=== PATIENT | male | born 1935 | race Caucasian/White ===

== ENCOUNTER → 2016-06-11 | Outpatient (CLI) | payer MEDICARE, OTHER ==
[~2016-06-11] MED LIST: ASPI81CH43 GT; ATOR20TA OR; CAR3125T OR; CLOP75TA28 OR; INSLANTI SC; PIOG30TA7 OR
== END | disposition home or self-care (01) ==
LOC: XYW 08:59
PROVIDERS: ATTEND Internal Medicine Cardiovascular Disease
DX: I50.9 Heart failure, unspecified (principal); I07.1 Rheumatic tricuspid insufficiency; I34.0 Nonrheumatic mitral (valve) insufficiency
CPT/HCPCS: 93306

== ENCOUNTER → 2017-01-13 | Outpatient (CLI) | payer MEDICARE, OTHER | END | disposition home or self-care (01) | LOC: XYW 10:19 | PROVIDERS: ATTEND Internal Medicine Cardiovascular Disease | DX: I34.0 Nonrheumatic mitral (valve) insufficiency (principal); I25.5 Ischemic cardiomyopathy | CPT/HCPCS: 93306 ==

== ENCOUNTER → 2017-07-22 | Outpatient (CLI) | payer MEDICARE, OTHER ==
[~2017-07-22] MED LIST changes: -PIOG30TA7 OR; +PIOG30TA8 OR
== END | disposition home or self-care (01) ==
LOC: XYW 09:18
PROVIDERS: ATTEND Internal Medicine Cardiovascular Disease
DX: I50.9 Heart failure, unspecified (principal)
CPT/HCPCS: 93306

== ENCOUNTER → 2018-12-23 | Outpatient (CLI) | payer MEDICARE, OTHER ==
[~2018-12-23] VITALS: Ht 175.3 cm; Wt 67.1 kg
[~2018-12-23] MED LIST changes: +ADENOSINE 56 MG in GIVE UN-DILUTED 0 ML IV STA; +PIOG30TA20 OR; -PIOG30TA8 OR
== END | disposition home or self-care (01) ==
LOC: XY 08:40
PROVIDERS: ATTEND Internal Medicine
DX: R07.9 Chest pain, unspecified (principal); I10 Essential (primary) hypertension
CPT/HCPCS: 78452; 93017; A9500; J0153

== ENCOUNTER → 2019-04-26 | Outpatient (CLI) | payer MEDICARE, OTHER ==
[~2019-04-26] MED LIST changes: -ADENOSINE 56 MG in GIVE UN-DILUTED 0 ML IV STA
== END | disposition home or self-care (01) ==
LOC: XY 10:43
PROVIDERS: ATTEND Internal Medicine
DX: I65.23 Occlusion and stenosis of bilateral carotid arteries (principal); I65.21 Occlusion and stenosis of right carotid artery; I65.22 Occlusion and stenosis of left carotid artery; I11.0 Hypertensive heart disease with heart failure; I50.9 Heart failure, unspecified; E11.9 Type 2 diabetes mellitus without complications
CPT/HCPCS: 93886

== ENCOUNTER 2019-05-06 10:14 | Inpatient (IN) | payer MEDICARE, OTHER ==
[2019-05-04 11:21] LABS: Basophils # (auto) 0 10 ^3/uL (0-0.2); Basophils % (auto) 0.5 % (0.0-2.0); Eosinophils # (auto) 0.2 10 ^3/uL (0-0.8); Eosinophils % (auto) 3.6 % (0.0-7.0); Hemoglobin 11.5 g/dL (13.5-17.5); Lymphocytes # (auto) 0.7 10 ^3/uL (0.4-5.4); Lymphocytes % (auto) 14.8 % (10.0-50.0); Monocytes # (auto) 0.5 10 ^3/uL (0-1.3); Neutrophils # (auto) 3.4 10 ^3/uL (1.6-8.6); White Blood Cell 4.8 10^3/uL (4.4-10.8)
[2019-05-04 11:23] LABS: Hematocrit 33.2 % (41.0-53.0); Mean Corpuscular Hemoglobin 35.5 pg (28.0-32.0); Mean Corpuscular Hgb Conc. 34.6 g/dL (32.0-36.0); Mean Corpuscular Volume 102.6 fL (80.0-100.0); Monocytes % (auto) 10.7 % (0.0-12.0); Neutrophils % (auto) 70.4 % (37.0-80.0); Platelet Count (auto) 117 10^3/uL (140-450); Red Blood Cells 3.24 10^6/uL (4.5-5.90); Red Cell Distribution Width 13.9 % (11.8-14.3)
[2019-05-04 11:27] LABS: INR 1.15 (0.9-1.15); Partial Thromboplastin Time 27.8 sec (23.64-32.05)
[2019-05-04 11:39] LABS: Albumin 3.4 g/dL (3.4-5.0); Calcium 8.6 mg/dL (8.5-10.1)
[2019-05-04 11:42] LABS: BUN/Creatinine Ratio 27.2; Bilirubin, Total 0.7 mg/dL (0.2-1.0); Total Protein 7.4 g/dL (6.4-8.2)
[~2019-05-06] VITALS: Ht 175.3 cm; Wt 71.2 kg
[~2019-05-06 10:14] MED LIST changes: -ASPI81CH43 GT; -ATOR20TA OR; +ATOR20TA PO; -CAR3125T OR; +CARV6.2551 PO; -CLOP75TA28 OR; +CLOP75TA28 PO; +DAPA1TAB4 PO; +DIGO0.12 PO; +DOXA1TAB41 PO; +FURO40TA4 PO; -INSLANTI SC; +MULTTAB99 PO; -PIOG30TA20 OR; +SERT-274 PO; +TAMS0.4C36 PO
[2019-05-06] MEDS ORDERED: GLYCOPYRROLATE 0.2 MG/ML 1ML VIAL ONE (11:14)
[2019-05-06] MEDS ORDERED: ATROPINE SULF 1 MG/10ml SYR ONE (11:14)
[2019-05-06] MEDS ORDERED: ANGIOMAX 250 MG VIAL IV ONE (11:14)
[2019-05-06] MEDS ORDERED: LIDOCAINE 2%HCL (LOCAL ANESTH.) INJ 20ML MDV ONE (11:15)
[2019-05-06] MEDS ORDERED: SODIUM CHL 0.9% 50 ML ONE (11:15)
[2019-05-06] MEDS ORDERED: EPINEPHrine HCL 1 MG/10 ML SYRG ONE (11:15)
[2019-05-06] MEDS ORDERED: DOPamine 1600MCG/ML D5W 0 ML IV ONE (11:15)
[2019-05-06] MEDS ORDERED: DEXTROSE 50% SYRINGE 50 ML IV ONE (11:30)
[2019-05-06] MEDS ORDERED: PHENYLEPHRINE HCL 10 MG/ML VL ONE (11:57)
[2019-05-06] MEDS ORDERED: CLOPIDOGREL BISULFATE 75 MG TAB ONE (12:34)
[2019-05-06] MEDS ORDERED: HYDROcodone-ACET 5/325MG TAB PO PRN (13:00)
[2019-05-06] MEDS ORDERED: ONDANSETRON HCL 4 MG/2 ML VIAL IV PRN (13:00)
[2019-05-06] MEDS ORDERED: NITROGLYCERIN 0.4 MG SL TAB SL PRN (13:00)
[2019-05-06] MEDS ORDERED: DEXTROSE (50%) 50ML SYRG IV PRN (13:00)
[2019-05-06] MEDS ORDERED: MORPHINE SULF INJ 2 MG/ML SYRINGE 1ML IV PRN (13:00)
[2019-05-06] MEDS: InsuLIN REG 1unit/0.01ml Soln (100units/ml) SC SCH ×2 (16:00→20:00)
[2019-05-06 17:00] VITALS: BP 101/32
[2019-05-06] MEDS: ACCU-CHEK COMFORT CURVE STRIP VI SCH ×2 (17:47→20:00)
[2019-05-06] MEDS: FUROSEMIDE 40 MG TAB PO SCH (18:00)
[2019-05-06] MEDS ORDERED: TAMSULOSIN HYDROCHLORIDE 0.4 MG CAP PO SCH (18:00)
[2019-05-06] MEDS: ACETAMINOPHEN 500 MG TAB PO PRN (20:20)
[2019-05-06 22:00] VITALS: BP 117/51
[2019-05-06] MEDS ORDERED: SERTRALINE HCL 50 MG TAB PO SCH (22:00)
[2019-05-06] MEDS: CARVEDILOL 3.125 MG TAB PO SCH (22:00)
[2019-05-07] MEDS: ACCU-CHEK COMFORT CURVE STRIP VI SCH ×3 (00:45→08:21)
[2019-05-07] MEDS: InsuLIN REG 1unit/0.01ml Soln (100units/ml) SC SCH ×3 (04:00→08:00)
[2019-05-07 05:00] VITALS: BP 112/47
[2019-05-07] MEDS: FUROSEMIDE 40 MG TAB PO SCH (06:00)
[2019-05-07 06:13] LABS: BUN/Creatinine Ratio 31.8; Calcium 8.2 mg/dL (8.5-10.1)
[2019-05-07 06:27] LABS: Potassium 2.8 mmol/L (3.5-5.1)
[2019-05-07] MEDS: ACETAMINOPHEN 500 MG TAB PO PRN (08:21)
[2019-05-07 09:00] VITALS: BP 113/35
[2019-05-07 09:40] VITALS: BP 113/35
[2019-05-07] MEDS ORDERED: CLOPIDOGREL BISULFATE 75 MG TAB PO SCH (10:00)
[2019-05-07] MEDS ORDERED: DIGOXIN 0.125 MG TAB PO SCH (10:00)
[2019-05-07] MEDS ORDERED: ATORVASTATIN 20 MG TAB PO SCH ×2 (10:00→22:00)
[2019-05-07] MEDS ORDERED: DOXAZOSIN MESYL 2 MG TAB PO SCH (10:00)
[2019-05-07] MEDS ORDERED: ASPirin 81 mg TAB PO SCH (10:00)
[2019-05-07] MEDS ORDERED: MULTIPLE VITAMIN TAB PO SCH (10:00)
[2019-05-07] MEDS: CARVEDILOL 3.125 MG TAB PO SCH (10:00)
[2019-05-07] MEDS ORDERED: POTASSIUM CHL 20 Meq TABLET PO ONE (10:15)
== END 2019-05-07 13:25 | disposition home or self-care (01) | DRG 36 ==
LOC: CATH 10:14 → TELE-WESTW 10:15
PROVIDERS: ADMIT Internal Medicine; ATTEND Internal Medicine
PROC: 037K3DZ Dilation of Right Internal Carotid Artery with Intraluminal Device, Percutaneous Approach (ICD-10-PCS; principal; 2019-05-06)
PROC: B3151ZZ Fluoroscopy of Bilateral Common Carotid Arteries using Low Osmolar Contrast (ICD-10-PCS; 2019-05-06)
PROC: B3121ZZ Fluoroscopy of Left Subclavian Artery using Low Osmolar Contrast (ICD-10-PCS; 2019-05-06)
DX: I65.21 Occlusion and stenosis of right carotid artery (principal); R00.1 Bradycardia, unspecified; J44.9 Chronic obstructive pulmonary disease, unspecified; E11.51 Type 2 diabetes mellitus with diabetic peripheral angiopathy without gangrene; I11.0 Hypertensive heart disease with heart failure; I50.9 Heart failure, unspecified; I25.2 Old myocardial infarction; Z86.73 Personal history of transient ischemic attack (TIA), and cerebral infarction without residual deficits
CPT/HCPCS: 36222; 36223; 36415; 37216; 80048; 80053; 82962; 85025; 85610; 85730; 99152; 99153; G0378